=== PATIENT | female | born 1985 | race American Indian/Alaskan Native ===

== ENCOUNTER 2017-01-28 09:42 | Outpatient (CLI) | payer MEDICAID ==
[2017-01-28 10:01] VITALS: BP 109/66
[2017-01-28] MEDS ORDERED: LACTATED RINGERS 1,000 ML IV ONE (10:10)
[2017-01-28] MEDS ORDERED: TYLENOL PO ONE (10:11)
[2017-01-28 12:20] LABS: Bilirubin,Urine NEG (Negative); Blood,Urine NEG (Negative); Ketones,Urine NEG (Negative); Leukocyte Esterase,Urine NEG (Negative); Mucus,Urine FEW /HPF; Nitrite,Urine NEG (Negative); Protein,Urine <15 mg/dL mg/dL (Negative); RBC,Urine < 1.0 /HPF (0.0-6.0); Urobilinogen,Urine < 2.0 mg/dL (<2.0)
== END 2017-01-28 13:01 | disposition home or self-care (01) ==
LOC: TRG 09:42
PROVIDERS: ATTEND Obstetrics & Gynecology
DX: O47.02 False labor before 37 completed weeks of gestation, second trimester (principal); Z3A.25 25 weeks gestation of pregnancy
CPT/HCPCS: 59025; 81001; 96360; J7120

== ENCOUNTER 2017-03-31 12:20 | Outpatient (CLI) | payer MEDICAID ==
[2017-03-31 12:37] VITALS: BP 145/83
[2017-03-31] MEDS ORDERED: LACTATED RINGERS 500 ML IV ONE (13:55)
== END 2017-03-31 14:12 | disposition home or self-care (01) ==
LOC: TRG 12:20
PROVIDERS: ATTEND Obstetrics & Gynecology
CPT/HCPCS: 59025

== ENCOUNTER 2017-04-03 05:11 | Outpatient (CLI) | payer MEDICAID ==
[2017-04-03 05:37] VITALS: BP 134/64
[2017-04-03] MEDS ORDERED: LACTATED RINGERS 500 ML IV ONE (05:38)
[2017-04-03 07:08] LABS: Bacteria,Urine 1+ /HPF (Negative); Bilirubin,Urine NEG (Negative); Blood,Urine NEG (Negative); Ketones,Urine NEG (Negative); Leukocyte Esterase,Urine NEG (Negative); Mucus,Urine FEW /HPF; Nitrite,Urine NEG (Negative); Protein,Urine <15 mg/dL mg/dL (Negative); Urobilinogen,Urine < 2.0 mg/dL (<2.0)
== END 2017-04-03 06:32 | disposition home or self-care (01) ==
LOC: TRG 05:11
PROVIDERS: ATTEND Obstetrics & Gynecology
DX: O47.03 False labor before 37 completed weeks of gestation, third trimester (principal); Z3A.35 35 weeks gestation of pregnancy
CPT/HCPCS: 81001

== ENCOUNTER 2017-04-27 08:37 | Inpatient (IN) | payer MEDICAID ==
[2017-04-27] MEDS ORDERED: PITOCin/NS 20 UNIT/1000ML DRIP 20 UNITS/1,000 ML BAG IV SCH (10:00)
[2017-04-27] MEDS ORDERED: LACTATED RINGERS 1,000 ML IV SCH (10:00)
[2017-04-27] MEDS ORDERED: ePHEDrine SULFATE IV PRN (10:30)
[2017-04-27] MEDS ORDERED: SUBLIMAZE IV PRN (10:30)
[2017-04-27] MEDS ORDERED: STADOL IV PRN (10:30)
[2017-04-27] MEDS ORDERED: NARCAN 0.4 MG/1 ML IV PRN (11:00)
[2017-04-27] MEDS ORDERED: ZOFRAN IV PRN ×2 (11:00→17:02)
[2017-04-27] MEDS ORDERED: MINERAL OIL PO PRN (11:00)
[2017-04-27] MEDS ORDERED: BRETHINE SUB-Q PRN (11:00)
[2017-04-27] MEDS ORDERED: XYLOCAINE 2% INFILTRATI ONE (11:00)
[2017-04-27] MEDS ORDERED: BRETHINE IVP PRN (11:00)
[2017-04-27] MEDS: PITOCin/NS 30 UNIT/500ML 30 UNITS/500 ML BAG IV SCH ×3 (11:14→13:16)
[2017-04-27 11:45] LABS: Hemoglobin 13.2 gm/dl (10.1-14.3); Mean Corpuscular HGB Conc 31 % (30-34); Mean Corpuscular Hemoglobin 23 pg (28-32); Mean Corpuscular Volume 75 fl (79-97); Platelet Count 182 K/mm3 (140-440); Red Blood Count 5.64 M/mm3 (3.65-5.03); Red Cell Distribution Width 16.5 % (13.2-15.2); White Blood Count 7.9 K/mm3 (4.5-11.0)
--- NOTE | 2017-04-27 14:28 | History and Physical Report ---
History of Present Illness Date of examination: 04/27/17 Date of admission: 04/27/17 08:37 Chief complaint: scheduled induction of labor History of present illness: Pt is a 31 year old -English female PILI 05/08/17 at 38w3d who presents for induction of labor secondary to IUGR per [facility] recommendations. She reports irregular contractions,and denies vaginal bleeding or leakage of fluid. She has had care at [facility] since the first trimester complicated by IUGR (followed by [facility]), fibroids, and 9 cm left ovarian simple cyst s/p Gynecologic Oncology consult. She is GBS negative. 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 History: fibroids Family/Genetic History: diabetes Social history: no significant social history - Obstetrical History Expected Date of Delivery: 05/08/17 Actual Gestation: 38 Week(s) 3 Day(s) : 3 Para: 1 Hx # Term Pregnancies: 1 Number of Pregnancies: 0 Spontaneous Abortions: 1 Induced : 0 Number of Living Children: 1 Medications and Allergies Allergies Allergy/AdvReac Type Severity Reaction Status Date / Time No Known Allergies Allergy Verified 01/28/17 09:53 Home Medications Medication Instructions Recorded Confirmed Last Taken Type Vit-Fe Fumar-FA [ 1 tab PO QDAY 01/28/17 01/28/17 01/27/17 21: 00 History Vitamin] 1 Active Meds: Active Medications Butorphanol Tartrate (Stadol) 2 mg IV Q2H PRN PRN Reason: Pain , Severe (7-10) Ephedrine Sulfate (Ephedrine Sulfate) 10 mg IV Q2M PRN PRN Reason: Hypotension Fentanyl (Sublimaze) 100 mcg IV Q2H PRN PRN Reason: Labor Pain Lactated Ringer's (Lactated Ringers) 1,000 mls @ 125 mls/hr IV DIRECT ANDERSON Last Admin: 04/27/17 11:08 Dose: 125 mls/hr Oxytocin/Sodium Chloride (Pitocin/Ns 20 Unit/1000ml Drip) 20 units in 1,000 mls @ 125 mls/hr IV DIRECT ANDERSON Oxytocin/Sodium Chloride (Pitocin/Ns 30 Unit/500ml) 30 units in 500 mls @ 2 mls /hr IV TITR ANDERSON PRN Reason: Protocol Last Titration: 04/27/17 13:19 Dose: 8 ml/hr, 8 mls/hr Mineral Oil (Mineral Oil) 30 ml PO QHS PRN PRN Reason: Constipation Naloxone HCl (Narcan 0.4 Mg/1 Ml) 0.1 mg IV Q2MIN PRN PRN Reason: Res Rate </= 8 or 02 SAT < 92% Ondansetron HCl (Zofran) 4 mg IV Q8H PRN PRN Reason: Nausea And Vomiting Terbutaline Sulfate (Brethine) 0.25 mg SUB-Q ONCE PRN PRN Reason: Hyperstimulation/Hypertonicity Terbutaline Sulfate (Brethine) 0.25 mg IVP ONCE PRN PRN Reason: Hyperstimulation/Hypertonicity Review of Systems All systems: negative - Vital Signs Vital signs: Vital Signs Temp Pulse Resp BP Pulse Ox 98.7 F 95 H 18 134/86 97 04/27/17 09:08 04/27/17 09:08 04/27/17 09:08 04/27/17 09:08 04/27/17 09:08 Temp Pulse Resp BP Pulse Ox 98.7 F 74 18 133/77 97 04/27/17 09:08 04/27/17 13:22 04/27/17 09:08 04/27/17 13:22 04/27/17 09:10 - Physical Exam Breasts: Positive: deferred, mass Lungs: Positive: Clear to auscultation Abdomen: Positive: soft (obese, gravid ) Genitourinary (Female): Positive: normal external genitalia Uterus: Positive: enlarged (gravid ) Extremities: Positive: normal - Obstetrical FHR: category 2 Uterine Contraction Monitor Mode: External Cervical Dilatation: 2 Cervical Effacement Percentage: 70 station: -1 Uterine Contraction Pattern: Irregular Uterine Tone Measurement Phase: Resting Uterine Contraction Intensity: Mild Results Result Diagrams: 04/27/17 11:27 Abnormal lab results 04/27/17 Range/Units 11:27 RBC 5.64 H (3.65-5.03) M/mm3 MCV 75 L (79-97) fl MCH 23 L (28-32) pg RDW 16.5 H (13.2-15.2) % All other labs normal. Assessment and Plan A: IUP at 38w3d IUGR Favorable cervix Obesity GBS negative Left ovarian cyst P: Admit to labor and delivery. Pitocin induction of labor. Routine intrapartum care.
[2017-04-27] MEDS ORDERED: DULCOLAX PR PRN (17:02)
[2017-04-27] MEDS ORDERED: LANSINOH TP PRN (17:02)
[2017-04-27] MEDS ORDERED: BENADRYL PO PRN (17:02)
[2017-04-27] MEDS ORDERED: PHENERGAN PO PRN (17:02)
[2017-04-27] MEDS ORDERED: PHENERGAN PR PRN (17:02)
[2017-04-27] MEDS ORDERED: NORCO 5/325 PO PRN (17:02)
[2017-04-27] MEDS ORDERED: MILK OF MAGNESIA PO PRN (17:02)
[2017-04-27] MEDS ORDERED: TUCKS PAD TP PRN (17:02)
[2017-04-27] MEDS ORDERED: TYLENOL PO PRN (17:02)
[2017-04-27] MEDS ORDERED: SODIUM CHLORIDE FLUSH SYRINGE 10 ML IV SCH (18:00)
--- NOTE | 2017-04-27 20:02 | Procedure Note ---
OB Delivery Note - Delivery Date of Delivery: 04/27/17 Surgeon: TREASURE DOS SANTOS Estimated blood loss: 300cc - Vaginal Delivery presentation: vertex Delivery position: OA Intrapartum events: decreased FHT variability, mult.variable deceleratio Delivery induction: oxytocin Delivery augmentation: rupture of membranes Delivery monitor: external FHT, external uterine Route of delivery: Delivery placenta: spontaneous Episiotomy: none Delivery laceration: none Anesthesia: intravenous Delivery comments: Patient progressed rapidly from 5 cm to complete dilation to delivery of a viable female over intact perineum via spontaneous vaginal delivery under IV anesthesia. Head delivered in ROSALIA position quickly followed by shoulders and body. was placed on maternal abdomen and bulb suctioned at delivery. At this time the provider changed and Dr. Davis attended the remainder of the case. The placenta delivered spontaneously. Uterus was firm. No lacerations noted. - Infant A at 1 minute: 8 at 5 minutes: 9 Infant Gender: Female (2451g @ 1654 pm)
[2017-04-28] MEDS: MOTRIN PO SCH ×3 (01:06→17:19)
[2017-04-28 07:45] LABS: Hemoglobin 11.2 gm/dl (10.1-14.3)
--- NOTE | 2017-04-28 08:03 | Progress Note ---
Assessment and Plan O: some elevated BP 140-150/80-90 PP H/H: Pending A: stable PP Day 1 Elevated BP P: close monitoring PIH panel and meds prn MD consult Subjective - Subjective Date of service: 04/28/17 Patient reports: appetite normal, voiding normally, pain well controlled, flatus , ambulating normally, other (c/o fatigue) : doing well Objective - Vital Signs Latest vital signs: Vital Signs Temp Pulse Resp BP BP Pulse Ox 04/28/17 04:29 98.8 F 100 H 18 121/68 99 04/27/17 23:54 98.5 F 76 18 147/83 99 04/27/17 20:32 97.8 F 79 18 153/90 99 04/27/17 17:53 85 98 04/27/17 17:48 72 98 04/27/17 17:43 67 98 04/27/17 17:38 78 99 04/27/17 17:33 74 98 04/27/17 17:28 70 99 04/27/17 17:23 78 100 04/27/17 17:18 74 146/78 98 04/27/17 17:13 86 71 L 04/27/17 17:12 83 99 04/27/17 17:07 73 99 04/27/17 17:02 75 100 04/27/17 16:57 85 100 04/27/17 16:53 91 H 76 L 04/27/17 16:52 71 100 04/27/17 16:47 75 98 04/27/17 16:42 74 100 04/27/17 16:37 70 97 04/27/17 16:33 82 93 04/27/17 16:32 79 98 04/27/17 16:27 80 97 04/27/17 14:41 18 04/27/17 13:22 74 133/77 04/27/17 13:20 98.3 F 74 18 133/77 04/27/17 12:03 71 131/78 04/27/17 11:17 77 143/86 04/27/17 09:12 82 134/86 04/27/17 09:10 94 H 97 04/27/17 09:08 98.7 F 95 H 18 134/86 97 Intake and Output 04/27/17 04/28/17 04/28/17 22:59 06:59 14:59 Intake Total 240 1240 Output Total 900 600 Balance -660 640 Intake: Oral 240 1240 Output: Urine 900 600 Void 900 600 Other: Total, Intake Amount 240 1000 Total, Output Amount 900 600 # Voids Void 4 Estimated Blood Loss 100 - Exam Breasts: Present: deferred Lungs: Present: Normal air movement Abdomen: Present: normal appearance, soft. Absent: distention, tenderness Uterus: Present: normal, firm, fundal height at umbilicus. Absent: bogginess, tenderness Extremities: Present: normal - Labs Labs: Abnormal lab results 04/27/17 Range/Units 11:27 RBC 5.64 H (3.65-5.03) M/mm3 MCV 75 L (79-97) fl MCH 23 L (28-32) pg RDW 16.5 H (13.2-15.2) %
--- NOTE | 2017-04-29 08:35 | Progress Note ---
Assessment and Plan A: PPD#2 s/p at term Labile BPs P: PIH labs If BP stable, discharge later today. Subjective - Subjective Date of service: 04/29/17 Principal diagnosis: s/p at term; labile blood pressures Interval history: Overnight pt had inflammation of skin superior to umbilicus that was painful, but it has resolved with warm compresses overnight. Patient reports: appetite normal, voiding normally, pain well controlled, ambulating normally [place]: doing well Objective - Vital Signs Latest vital signs: Vital Signs Temp Pulse Resp BP BP Pulse Ox 04/29/17 01:20 98.6 F 100 H 18 130/73 04/28/17 16:16 98.7 F 85 20 136/75 99 04/28/17 11:51 98.4 F 80 20 132/70 97 Intake and Output 04/28/17 04/29/17 04/29/17 22:59 06:59 14:59 Intake Total 240 780 Balance 240 780 Intake: Oral 240 Intake, Free Water 780 Other: Total, Intake Amount 240 # Voids Void 1 1 - Exam Breasts: Present: deferred Cardiovascular: Present: Regular rate Lungs: Present: Clear to auscultation Abdomen: Present: soft (obese) Uterus: Present: fundal height below umbilicus Extremities: Present: edema (trace)
--- NOTE | 2017-04-29 08:36 | Discharge Summary ---
Providers - Providers Date of Admission: 04/27/17 08:37 Date of discharge: 04/29/17 Attending physician: TREASURE STEELE Primary care physician: CORBIN FOFANA MD Hospitalization Reason for admission: induction of labor Delivery: Procedure details: Please see delivery note. Episiotomy: none Laceration: none Other procedures: none complications: none Discharge diagnosis: IUP at term delivered baby: female Hospital course: Patient was admitted for induction of labor and went on to have a spontaneous vaginal delivery which she tolerated well. Her course is uncomplicated and she discharge criteria on day #2. She'll follow up in the office in [address] Steele. Condition at discharge: Stable Disposition: DC-01 TO HOME OR SELFCARE - Discharge Diagnoses (1) Term of female Status: Acute (2) IUGR (intrauterine growth restriction) Status: Acute (3) Obesity (BMI 30-39.9) Status: Acute Plan - Discharge Medications Prescriptions: Ibuprofen [Motrin] 800 mg PO Q8HR PRN #30 tablet PRN Reason: Pain - Provider Discharge Summary Activity: routine, no sex for 6 weeks, no heavy lifting 4 weeks, no strenuous exercise Diet: routine Instructions: routine Additional instructions: [] Smoking cessation referral if applicable(refer to patient education folder for contact #) [] Refer to [facility] Booklet Call your doctor immediately for: * Fever > 100.5 * Heavy vaginal bleeding ( >1 pad per hour) * Severe persistent headache * Shortness of breath * Reddened, hot, painful area to leg or breast * Drainage or odor from incision. * Keep incision clean and dry at all times and follow doctor's instructions regarding bathing/showering - Follow up plan Follow up: TREASURE STEELE MD [Staff Physician] - 05/25/17 ( exam )
[2017-04-29 08:47] LABS: Hematocrit 34.7 % (30.3-42.9); Hemoglobin 11.3 gm/dl (10.1-14.3); Mean Corpuscular HGB Conc 33 % (30-34); Mean Corpuscular Volume 75 fl (79-97); Platelet Count 169 K/mm3 (140-440); Red Blood Count 4.64 M/mm3 (3.65-5.03); Red Cell Distribution Width 16.2 % (13.2-15.2)
[2017-04-29 08:54] LABS: Mean Corpuscular Hemoglobin 24 pg (28-32)
[2017-04-29 09:09] LABS: Alanine Aminotransferase 13 units/L (7-56)
[2017-04-29 09:13] LABS: Lactate Dehydrogenase 235 units/L (91-180); Uric Acid 5.7 mg/dL (3.5-7.6)
[2017-04-29] MEDS: MOTRIN PO SCH ×2 (11:47→17:15)
[2017-04-29 12:24] LABS: Bilirubin,Urine NEG (Negative); Blood,Urine NEG (Negative); Ketones,Urine NEG (Negative); Leukocyte Esterase,Urine TR (Negative); Mucus,Urine FEW /HPF; Nitrite,Urine NEG (Negative); Protein,Urine <15 mg/dL mg/dL (Negative); Urobilinogen,Urine < 2.0 mg/dL (<2.0)
[2017-04-29 15:38] VITALS: BP 115/76
== END 2017-04-29 21:30 | disposition home or self-care (01) | DRG 775 ==
LOC: LD 08:37 → OB 21:09
PROVIDERS: ADMIT Obstetrics & Gynecology; ATTEND Obstetrics & Gynecology
PROC: 10E0XZZ Delivery of Products of Conception, External Approach (ICD-10-PCS; principal; 2017-04-27)
PROC: 3E033VJ Introduction of Other Hormone into Peripheral Vein, Percutaneous Approach (ICD-10-PCS; 2017-04-27)
DX: O36.5930 Maternal care for other known or suspected poor fetal growth, third trimester, not applicable or unspecified (principal); Z3A.38 38 weeks gestation of pregnancy; Z37.0 Single live birth; Z83.3 Family history of diabetes mellitus; O34.83 Maternal care for other abnormalities of pelvic organs, third trimester; N83.202 Unspecified ovarian cyst, left side; O99.214 Obesity complicating childbirth; E66.9 Obesity, unspecified; Z68.38 Body mass index [BMI] 38.0-38.9, adult; R09.89 Other specified symptoms and signs involving the circulatory and respiratory systems
CPT/HCPCS: 36415; 81001; 82565; 83615; 84450; 84460; 84550; 85014; 85018; 85027; 86592; 86850; 86900; 86901; 99211; G0463; J0595; J2590; J7120

== ENCOUNTER 2017-05-05 13:09 | Emergency (ER) | payer MEDICAID ==
[2017-05-05 13:48] VITALS: BP 148/84
== END 2017-05-05 17:44 | disposition left against medical advice (07) ==
LOC: ED 13:09
DX: R60.0 Localized edema (principal); Z53.21 Procedure and treatment not carried out due to patient leaving prior to being seen by health care provider

== ENCOUNTER 2017-12-14 08:10 | Day surgery (SDC) | payer MEDICAID ==
--- NOTE | 2017-12-14 08:50 | History and Physical Report ---
History of Present Illness Date of examination: 12/07/17 Chief complaint: Adnexal Mass History of present illness: Pt is a 32 year old -Swedish female who presents with an one year history of an 8 cm adnexal mass. The patient desires surgical management. Past History Past Medical History: no pertinent history Past Surgical History: no surgical history Family/Genetic History: none Social history: no significant social history - Obstetrical History : 3 Para: 2 Hx # Term Pregnancies: 2 Number of Pregnancies: 0 Spontaneous Abortions: 1 Induced : 0 Number of Living Children: 2 Medications and Allergies Allergies Allergy/AdvReac Type Severity Reaction Status Date / Time No Known Allergies Allergy Verified 12/09/17 09:19 Home Medications Medication Instructions Recorded Confirmed Last Taken Type No Known Home Medications [No 12/09/17 12/09/17 Unknown History Reported Home Medications] Active Meds: Active Medications Cefazolin Sodium (Ancef/Sterile Water 2 Gm/20 Ml) 2 gm in 20 mls @ 80 mls/hr IV PREOP NR; Protocol Lactated Ringer's (Lactated Ringers) 1,000 mls @ 100 mls/hr IV DIRECT ANDERSON Review of Systems All systems: negative - Physical Exam Breasts: Positive: deferred Cardiovascular: Regular rate Lungs: Positive: Clear to auscultation Abdomen: Positive: soft Extremities: Positive: normal Results All other labs normal. Assessment and Plan A: Persistent Adnexal Mass Pelvic Pain P: Proceed with laparoscopic ovarian cystectomy and other indicated procedures
[2017-12-14] MEDS ORDERED: DILAUDID ONE ×2 (08:53→10:17)
[2017-12-14] MEDS ORDERED: DIPRIVAN 10 MG/ML IV ONE (08:53)
[2017-12-14] MEDS ORDERED: XYLOCAINE MPF 2% ONE (08:53)
[2017-12-14] MEDS ORDERED: ZEMURON IV ONE (08:53)
[2017-12-14] MEDS ORDERED: TORADOL IV PRN (09:00)
[2017-12-14] MEDS ORDERED: ZOFRAN IV PRN (09:00)
[2017-12-14] MEDS ORDERED: ANCEF/STERILE WATER 2 GM/20 ML 2 GM/20 ML SYRINGE IV NR (09:00)
[2017-12-14] MEDS ORDERED: VERSED IV NR (09:00)
[2017-12-14] MEDS ORDERED: DILAUDID IV PRN (09:00)
[2017-12-14] MEDS ORDERED: LACTATED RINGERS 1,000 ML IV SCH (09:00)
--- NOTE | 2017-12-14 09:18 | Anesthesia Consultation ---
Anesthesia Consult and Med Hx Date of service: 12/14/17 - Airway Anesthetic Teeth Evaluation: Good ROM Head & Neck: Adequate Mental/Hyoid Distance: Adequate Mallampati Class: Class II Intubation Access Assessment: Probably Good - Pulmonary Exam CTA: Yes - Cardiac Exam Cardiac Exam: RRR - Pre-Operative Health Status ASA Pre-Surgery Classification: ASA2 Proposed Anesthetic Plan: General - Pulmonary Hx Smoking: No Hx Asthma: No COPD: No Hx Pneumonia: No - Cardiovascular System Hx Hypertension: No Hx Heart Attack/AMI: No - Central Nervous System Hx Neuromuscular Disorder: No Hx Seizures: No Hx Psychiatric Problems: No - Gastrointestinal Hx Gastroesophageal Reflux Disease: No - Endocrine Hx Renal Disease: No Hx End Stage Renal Disease: No Hx Hypothyroidism: No Hx Hyperthyroidism: No - Hematic Hx Anemia: No Hx Sickle Cell Disease: No - Other Systems Hx Alcohol Use: Yes (occas) Hx Cancer: No Hx Obesity: Yes - Additional Comments Anesthesia Medical History Comments: No previous anesthetic, No FHAC
[2017-12-14] MEDS ORDERED: NACL BACTERIOSTATIC INFILTRATI ONE (09:19)
[2017-12-14] MEDS ORDERED: MARCAINE 0.5% 30 ML INFILTRATI ONE (09:37)
[2017-12-14 09:53] LABS: Hematocrit 40.4 % (30.3-42.9); Hemoglobin 12.6 gm/dl (10.1-14.3); Mean Corpuscular HGB Conc 31 % (30-34); Mean Corpuscular Volume 73 fl (79-97); Platelet Count 255 K/mm3 (140-440); Red Blood Count 5.55 M/mm3 (3.65-5.03); Red Cell Distribution Width 16.1 % (13.2-15.2)
[2017-12-14 09:59] LABS: Mean Corpuscular Hemoglobin 23 pg (28-32)
[2017-12-14] MEDS ORDERED: SILVER NITRATE TP ONE ×4 (10:23→10:35)
[2017-12-14] MEDS ORDERED: DECADRON ONE (10:29)
[2017-12-14] MEDS ORDERED: ZOFRAN ONE (10:29)
[2017-12-14] MEDS ORDERED: NACL 0.9% IR ONE (10:35)
[2017-12-14] MEDS ORDERED: MARCAINE 0.5% INFILTRATI ONE (10:35)
[2017-12-14] MEDS ORDERED: SUBLIMAZE ONE (10:42)
[2017-12-14] MEDS ORDERED: TORADOL ONE (11:25)
[2017-12-14] MEDS ORDERED: BLOXIVERZ ONE (11:25)
[2017-12-14] MEDS ORDERED: ROBINUL ONE ×2 (11:25→11:48)
--- NOTE | 2017-12-14 12:00 | Post Operative Note ---
Pre-op diagnosis: 1) Ovarian Cyst 2) Pelvic Pain Post-op diagnosis: other (Paratubal cyst, Pelvic Pain) Findings: 1) ~ 8 cm thin-walled paratubal cyst closely abutting the left fallopian tube, not at all attached to the left ovary filled with clear fluid 2) Normal appearing right fallopian tube and right ovary 3) Small retroverted uterus Procedure: 1) Left paratubal cystectomy 2) Partial left salpingectomy Anesthesia: GETA Surgeon: TREASURE DOS SANTOS Retail Customer Service Specialist: JONNIE TREJO Estimated blood loss: minimal Pathology: list (cyst apspirate, left paratubal cyst and partial left fallopian tube) Specimen disposition: to lab Condition: stable Disposition: PACU
--- NOTE | 2017-12-14 12:02 | Operative Report ---
Operative Report Operative Report: Date of procedure: December 14, 2017 Preoperative diagnosis: 1) Ovarian Cyst 2) Pelvic Pain 3) Obesity Postoperative diagnosis: 1) Left paratubal cyst 2) Pelvic Pain 3) Obesity Procedure: 1) Laparoscopic left paratubal cystectomy and partial left salpingectomy Surgeon: Ynes Steele M.D. Clinical Pharmacy Manager: Margo Davis MD Anesthesia: General endotracheal anesthesia Findings: 1) ~ 8 cm thin-walled paratubal cyst closely abutting the left fallopian tube, not originating from the left ovary; contains clear fluid 2) Normal appearing right fallopian tube and right ovary 3) Small retroverted uterus Estimated blood loss: minimal IV fluid: 1000 mL Specimens: cyst aspirate, left paratubal cyst and partial left fallopian tube to pathology Complications: None. Counts correct 2 Disposition: Stable to PACU Indications for procedure: Pt is a 32 year old -[place] female who presents with an one year history of an 8 cm adnexal mass and intermittent pelvic pain. The patient desires surgical management. Operation in Detail: After the risks, benefits, alternatives and complications of the procedure were explained to the patient, she gave informed consent for the procedure. She was subsequently taken to the operating room with her IV noted to be running and placed in the dorsal supine position with sequential compression devices functioning. General endotracheal anesthesia was then induced without difficulty. The patient was then placed in dorsal lithotomy position and prepped and draped in normal sterile fashion. A timeout was then performed. An exam under anesthesia was then performed yielding a small retroverted uterus. A johnston catheter was then placed. An open sided speculum was placed into the vagina for visualization of the cervix. A single-tooth tenaculum was placed on the posterior lip of the cervix for traction. A uterine manipulator was placed without difficulty. The speculum and single tooth tenaculum were removed from the vagina. The surgeon's gloves were then changed. Attention was then turned to entry into the abdominal cavity. A 5 mm incision was made in the inferior fold of the umbilicus with an 11 blade. The skin was grasped on either side of the umbilicus and tented up. A Veres needle was placed into the peritoneal cavity, confirmed with a saline drop test. The abdomen was then insufflated with CO2 gas to a pressure of 15 mmHg. A 5 mm Visiport trocar was then placed. An anatomic survey was then performed with findings as indicated above. A second trocar site was created in the LLQ. A 5 mm trocar was placed under direct visualization. A third trocar site was made in the RLQ. An 10 mm trocar was then placed under direct visualization. The patient was placed in Trendelenburg position. At this time, it became evident that the cyst arises from the left fallopian tube, rather than either ovary. A needle was used to aspirate a sample of the cyst fluid which was sent to pathology. A 5 mm Ligasure was used to excise the cyst and an intimately associated portion of the left fallopian tube. It was removed from the abdomen through the 10 mm trocar and sent to pathology. The abdomen was then copiously irrigated. At this time, all instruments were removed from the abdominal cavity. Hemostasis was noted. Anson AH was sprayed over the left adnexa. A Thanh-Olmos device with 0 Vicryl was used to reapproximate the 10 mm fascial incision. The pneumoperitoneum was released and all trocars were removed atraumatically. The three skin incisions were then infiltrated with half percent Marcaine. Each incision was then reapproximated with 4-0 Vicryl in a subcuticular fashion, and covered with skin glue. Attention was returned to the vagina. An open-sided speculum was placed in the vagina. The uterine manipulator was removed atraumatically. Silver nitrate was used to obtain hemostasis of the tenaculum puncture sites. At this time, all instruments were removed from the vagina atraumatically. The johnston catheter was then removed. At this time the procedure was ended. The patient was placed into the dorsal supine position and extubated without difficulty. She tolerated the procedure well and was subsequently taken to the PACU in stable condition. All instrument, needle and lap counts were correct 2.
--- NOTE | 2017-12-14 12:16 | Short Stay Summary ---
Short Stay Documentation Date of service: 12/14/17 - History H&P: dictated Social history: no significant social history - Allergies and Medications Current Medications: Allergies No Known Allergies Allergy (Verified 12/09/17 09:19) Home Medications Medication Instructions Recorded Confirmed Last Taken Type No Known Home Medications [No 12/09/17 12/09/17 Unknown History Reported Home Medications] Active Medications Hydromorphone HCl (Dilaudid) 0.5 mg IV Q10MIN PRN PRN Reason: Pain , Severe (7-10) Stop: 12/14/17 12:00 Cefazolin Sodium (Ancef/Sterile Water 2 Gm/20 Ml) 2 gm in 20 mls @ 80 mls/hr IV PREOP NR; Protocol Stop: 12/14/17 12:00 Lactated Ringer's (Lactated Ringers) 1,000 mls @ 100 mls/hr IV DIRECT ANDERSON Last Admin: 12/14/17 10:01 Dose: 100 mls/hr Ketorolac Tromethamine (Toradol) 30 mg IV ONCE PRN PRN Reason: Pain, Moderate (4-6) Stop: 12/14/17 12:00 Midazolam HCl (Versed) 2 mg IV PREOP NR Stop: 12/14/17 23:59 Last Admin: 12/14/17 10:02 Dose: 2 mg Ondansetron HCl (Zofran) 4 mg IV ONCE PRN PRN Reason: Nausea And Vomiting Stop: 12/14/17 12:00 - Physical exam Breasts: deferred - Brief post op/procedure progress note Date of procedure: 12/14/17 Pre-op diagnosis: Ovarian cyst, Pelvic Pain, Obesity Post-op diagnosis: other (Paratubal cyst, Pelvic Pain) Procedure: Laparoscopic left paratubal cystectomy, partial left salpingectomy Anesthesia: GETA Findings: 1) ~ 8 cm thin-walled paratubal cyst closely abutting the left fallopian tube, not originating from the left ovary; contains clear fluid 2) Normal appearing right fallopian tube and right ovary 3) Small retroverted uterus Surgeon: TREASURE STEELE Fan Blade Aligner: JONNIE TRJEO Estimated blood loss: minimal Pathology: list (cyst aspirtate, left paratubal cyst and partial left fallopian tube) Specimen disposition: to lab Condition: stable - Hospital course Hospital course: Pt tolerated the laparoscopic left paratubal cystectomy and partial left salpingectomy well. She was observed in the PACU until she met discharge criteria. She will follow up in 2 weeks in the office with Dr Steele. - Disposition Condition at discharge: Stable Disposition: DC-01 TO HOME OR SELFCARE - Discharge Diagnoses (1) Paratubal cyst Status: Acute (2) Obesity Status: Acute Qualifiers: Obesity type: unspecified obesity type Serious obesity comorbidity presence : unspecified whether serious comorbidity present Body mass index: BMI 32.0- 32.9 (3) Pelvic pain Status: Acute Short Stay Discharge Plan Activity: other (Nothing in vagina x 4 wks ) Weight Bearing Status: Full Weight Bearing Diet: regular Follow up with: NAHUN LINDSEY MD [Primary Care Provider] - 7 Days TREASURE STEELE MD [Staff Physician] - 01/03/18 (please call for postop appt ) Prescriptions: Ibuprofen [Motrin] 800 mg PO Q8HR PRN #30 tablet PRN Reason: Pain, Moderate (4-6) oxyCODONE /ACETAMINOPHEN [Percocet 5/325] 1 tab PO Q6HR PRN #30 tablet PRN Reason: Pain
[2017-12-14] MEDS ORDERED: PERCOCET 5/325 PO PRN (12:28)
[2017-12-14 17:57] VITALS: BP 117/73
== END 2017-12-14 14:36 | disposition home or self-care (01) ==
LOC: OR 08:10
PROVIDERS: ATTEND Obstetrics & Gynecology
DX: N83.8 Other noninflammatory disorders of ovary, fallopian tube and broad ligament (principal); N85.4 Malposition of uterus; E66.9 Obesity, unspecified; Z68.32 Body mass index [BMI] 32.0-32.9, adult; Z79.899 Other long term (current) drug therapy; Z72.89 Other problems related to lifestyle
CPT/HCPCS: 36415; 58661; 81025; 85027; 88112; 88305; J0690; J1100; J1170; J1885; J2250; J2405; J2704; J2710; J3010; J7120